=== PATIENT | female | born 1975 | race Caucasian/White ===

== ENCOUNTER 2021-07-08 12:39 | Inpatient (IN) | payer OTHER ==
[2021-07-08] MEDS ORDERED: MAGNESIUM HYDROX 2400MG/30ML ORAL SUSPENSION 30 ML CUP PO PRN (13:33)
[2021-07-08] MEDS ORDERED: IBUPROFEN 400 MG TABLET (FP) PO PRN (13:33)
[2021-07-08] MEDS ORDERED: DICYCLOMINE HCL 10 MG CAPSULE PO PRN (13:33)
[2021-07-08] MEDS ORDERED: ACETAMINOPHEN 325 MG TABLET (FP) PO PRN (13:33)
[2021-07-08] MEDS ORDERED: MAG HYDROX/AL HYDROX/SIMETH 30 ML UNIT-DOSE CUP PO PRN (13:33)
[2021-07-08] MEDS ORDERED: BISMUTH SUBSALICYLATE 524 MG/30 ML PO PRN (13:33)
[2021-07-08] MEDS ORDERED: MAGNESIUM CITRATE 300 ML BOTTLE PO PRN (13:33)
[2021-07-08] MEDS ORDERED: LOPERAMIDE HCL 2 MG CAPSULE PO PRN (13:33)
[2021-07-08] MEDS ORDERED: MENTHOL/PHENOL 1 EACH UD MM PRN (13:33)
[2021-07-08] MEDS: hydrOXYzine PAMOATE 25 MG CAPSULE (FP) PO PRN ×2 (14:52→22:11)
[2021-07-08] MEDS: NICOTINE 7 MG/24 HOURS TOPICAL PATCH TD SCH (14:54)
[2021-07-08 15:39] VITALS: BMI 26.5
[2021-07-08] MEDS: THIAMINE HCL 100 MG TABLET (FP) PO SCH (22:11)
[2021-07-08] MEDS: MELATONIN 5 MG TABLETS PO PRN (22:11)
[2021-07-08] MEDS: METHOCARBAMOL 500 MG TABLET PO PRN (22:12)
[2021-07-09] MEDS ORDERED: methaDONE HCL 10 MG TABLET (FOR DETOX USE ONLY) PO ONE ×2 (00:10→10:30)
[2021-07-09] MEDS: ONDANSETRON *ODT* 4 MG TABLET SL PRN ×2 (00:34→22:14)
[2021-07-09] MEDS: diazePAM 5 MG TABLET PO PRN ×2 (00:38→09:05)
[2021-07-09] MEDS: cloNIDine HCL 0.1 MG TABLET PO PRN ×2 (05:51→22:12)
[2021-07-09] MEDS: hydrOXYzine PAMOATE 25 MG CAPSULE (FP) PO PRN ×3 (05:51→22:12)
[2021-07-09] MEDS: diazePAM 5 MG TABLET PO SCH ×4 (05:52→22:12)
[2021-07-09] MEDS: METHOCARBAMOL 500 MG TABLET PO PRN ×2 (10:31→22:12)
[2021-07-09] MEDS: PRENATAL VITAMINS W/ FOLIC ACID TABLET (FP) PO SCH (10:32)
[2021-07-09] MEDS: NICOTINE 10 MG CARTRIDGE (INHALER) IH PRN (10:36)
[2021-07-09 10:42] LABS: HEMATOCRIT 38.6 % (32.4-45.2); HEMOGLOBIN 12.2 GM/dL (10.7-15.3); MCHC 31.6 g/dl (32.0-36.0); MEAN CELL VOLUME 75.9 fl (80-96); MEAN PLT VOLUME 9.1 fl (7.5-11.1); PLATELET COUNT 166 10^3/uL (134-434); RBC 5.09 M/mm3 (3.60-5.2); RDW 20.1 % (11.6-15.6)
[2021-07-09 10:46] LABS: ALBUMIN 3.1 g/dl (3.4-5.0); BLOOD UREA NITROGEN 6.7 mg/dL (7-18); CALCIUM 8.6 mg/dL (8.5-10.1)
[2021-07-09 10:48] LABS: CREATININE 0.6 mg/dL (0.55-1.3)
[2021-07-09 10:50] LABS: BILIRUBIN,TOTAL 0.3 mg/dL (0.2-1); TOT PROT 6.2 g/dl (6.4-8.2)
[2021-07-09] MEDS: NICOTINE 7 MG/24 HOURS TOPICAL PATCH TD SCH (10:54)
[2021-07-09] MEDS: ACETAMINOPHEN 325 MG TABLET (FP) PO PRN (15:49)
[2021-07-09] MEDS: MELATONIN 5 MG TABLETS PO PRN (22:12)
[2021-07-09] MEDS: THIAMINE HCL 100 MG TABLET (FP) PO SCH (22:12)
[2021-07-10] MEDS: diazePAM 5 MG TABLET PO SCH ×3 (06:09→22:06)
[2021-07-10] MEDS: METHOCARBAMOL 500 MG TABLET PO PRN ×2 (07:36→22:07)
[2021-07-10] MEDS: hydrOXYzine PAMOATE 25 MG CAPSULE (FP) PO PRN ×2 (07:36→20:15)
[2021-07-10] MEDS: ACETAMINOPHEN 325 MG TABLET (FP) PO PRN ×3 (07:36→23:26)
[2021-07-10] MEDS: diazePAM 5 MG TABLET PO PRN ×3 (08:29→17:31)
[2021-07-10] MEDS ORDERED: methaDONE HCL 10 MG TABLET (FOR DETOX USE ONLY) ONE (08:59)
[2021-07-10] MEDS: PRENATAL VITAMINS W/ FOLIC ACID TABLET (FP) PO SCH (09:50)
[2021-07-10] MEDS: NICOTINE 7 MG/24 HOURS TOPICAL PATCH TD SCH (10:22)
[2021-07-10] MEDS: NICOTINE 10 MG CARTRIDGE (INHALER) IH PRN ×2 (12:46→22:07)
[2021-07-10] MEDS: cloNIDine HCL 0.1 MG TABLET PO PRN (17:28)
[2021-07-10] MEDS: MELATONIN 5 MG TABLETS PO PRN (22:06)
[2021-07-10] MEDS: THIAMINE HCL 100 MG TABLET (FP) PO SCH (22:06)
[2021-07-11] MEDS: diazePAM 5 MG TABLET PO PRN ×3 (00:24→10:19)
[2021-07-11] MEDS: hydrOXYzine PAMOATE 25 MG CAPSULE (FP) PO PRN ×2 (01:31→06:18)
[2021-07-11] MEDS ORDERED: diazePAM 5 MG TABLET PO SCH (06:00)
[2021-07-11] MEDS: ACETAMINOPHEN 325 MG TABLET (FP) PO PRN (06:18)
[2021-07-11] MEDS: METHOCARBAMOL 500 MG TABLET PO PRN (06:18)
[2021-07-11 08:08] LABS: SARS-CoV-2 NAA Not Detected (Not Detected)
[2021-07-11 08:46] VITALS: TEMP 98.2
[2021-07-11] MEDS ORDERED: methaDONE HCL 10 MG TABLET (FOR DETOX USE ONLY) PO ONE ×2 (10:00→11:42)
[2021-07-11] MEDS: PRENATAL VITAMINS W/ FOLIC ACID TABLET (FP) PO SCH (10:17)
[2021-07-11] MEDS: NICOTINE 7 MG/24 HOURS TOPICAL PATCH TD SCH (10:18)
[2021-07-11] MEDS: NICOTINE 10 MG CARTRIDGE (INHALER) IH PRN (10:18)
[2021-07-11] MEDS ORDERED: methaDONE HCL 10 MG TABLET PO ONE (10:46)
[2021-07-11 13:41] VITALS: BP 100/74; PULSE 88
[2021-07-12] MEDS ORDERED: methaDONE HCL 10 MG TABLET (FOR DETOX USE ONLY) PO ONE (06:00)
[2021-07-12] MEDS ORDERED: methaDONE HCL 10 MG TABLET PO SCH (06:00)
[2021-07-12] MEDS ORDERED: diazePAM 5 MG TABLET PO ONE (06:00)
[2021-07-13] MEDS ORDERED: methaDONE HCL 10 MG TABLET (FOR DETOX USE ONLY) PO ONE (10:00)
== END 2021-07-11 15:00 | disposition home or self-care (01) | DRG 773 ==
LOC: YASAS 12:39 → Y3N 14:17
PROVIDERS: ADMIT Allergy & Immunology; ATTEND Allergy & Immunology
PROC: HZ2ZZZZ Detoxification Services for Substance Abuse Treatment (ICD-10-PCS; principal; 2021-07-08)
DX: F11.23 Opioid dependence with withdrawal (principal); F13.20 Sedative, hypnotic or anxiolytic dependence, uncomplicated; F14.10 Cocaine abuse, uncomplicated; F12.20 Cannabis dependence, uncomplicated; F17.210 Nicotine dependence, cigarettes, uncomplicated; R63.4 Abnormal weight loss; Z68.26 Body mass index [BMI] 26.0-26.9, adult; Z88.8 Allergy status to other drugs, medicaments and biological substances; Z91.013 Allergy to seafood
CPT/HCPCS: 36415; 80053; 81025; 85027; 86780; 87811; C9803-CS; J0735; Q0162; U0003; U0005